=== PATIENT | female | born 1945 | race Caucasian/White ===

== ENCOUNTER 2016-07-29 11:52 | Observation (INO) | payer OTHER ==
[~2016-07-29] VITALS: Ht 170.2 cm; Wt 111.3 kg
[~2016-07-29 11:52] MED LIST: ADVAIR HFA120 INHALA IH; AFRIN MENTHOL S15 ML NS; ALLERGY RELIEF10 M5 PO; AMITRIPTYLINE H10 MG PO; ARMOUR THYROID15 MG PO; ARMOUR THYROID30 MG PO; ASPIRIN BUFFER325 MG PO; ASPIRIN325 MG PO; BALANCE B-1001 EAC1 PO; CALCARB 600 W-1 EACH PO; CALCIO DEL MAR500 MG PO; CELEBREX200 MG PO; CLINDAMYCIN HC300 MG PO; COENZYME Q1010 M1 PO; COQ-10100 MG PO; DELTASONE20 M1 PO; DHEA25 MG PO; DICYCLOMINE HCL20 MG PO; DULERA 100 MCG/13 GM IH; EQL GLUCOSAMIN PO; FIBER GUMMIES2.5 GM PO; FORADIL AEROLI12 MCG IH; GLUCOSAMINE &1 EACH PO; HYDROCODON-ACE1 EAC7 PO; KRILL OIL500 MG PO; LEVAQUIN500 MG PO; METOPROLOL TART50 MG PO; MULTIVITAMIN1 EAC1 PO; NEXIUM40 MG PO; NORCO 5/3251 TABLET PO; PRAVACHOL40 MG PO; PRAVASTATIN SOD40 MG PO; PREDNISONE50 MG PO; PREGNENOLONE; PREGNENOLONE1 GM MC; PROAIR HFA8.5 GM IH; PROBIOTIC1 EAC1 PO; PROGESTERONE100 MG PO; PROMETRIUM100 MG PO; PROMETRIUM200 M1 PO; PROVENTIL HFA6.7 GM IH; ROBITUSSIN AC,T10 ML PO; SYNOVACIN500 MG PO; TESSALON PERLE100 MG PO; VENTOLIN; VITAMIN D35000 UNI1 PO; VITAMIN D35000 UNIT PO; ZOFRAN4 MG PO; ZYRTEC10 M3 PO; [UNRECOGNIZED DRUG - OTHER] PO
[2016-07-29 14:04] LABS: EOSINOPHIL (%) 0.3 % (0-5); HEMATOCRIT 37.2 % (36.0-46.0); IMMATURE GRANULOCYTE (%) 0.2 % (0.0-0.7); IMMATURE GRANULOCYTE COUNT 0.2 K/uL; LYMPHOCYTE COUNT 1.3 K/uL (1.0-2.8); MCH 31.2 PG (29.0-34.0); MCHC 34.7 G/DL (30.0-36.0); MCV 89.9 FL (83-99); MEAN PLAT.VOLUME 11.2 uM^3 (9.5-12.4); MONOCYTE (%) 7.9 % (3-12); MONOCYTE COUNT 0.7 K/uL (0-0.8); NEUTROPHIL (%) 77.6 % (45-76); NEUTROPHIL COUNT 7.3 K/uL (1.8-6.4); PLATELET COUNT 200 K/uL (156-360); RBC DIS.WIDTH-CV 13.9 % (11.8-14.6); RBC DIS.WIDTH-SD 44.3 % (39-53); RED BLOOD COUNT 4.14 M/uL (3.80-5.20); WHITE BLOOD COUNT 9.4 K/uL (4.1-10.2)
[2016-07-29 15:00] LABS: CHLORIDE 107 mEq/L (99-109); POTASSIUM 3.9 mEq/L (3.7-5.4); SODIUM 138 mEq/L (136-147)
[2016-07-29 15:02] LABS: GLUCOSE 117 mg/dL (70-99)
[2016-07-29 15:04] LABS: ANION GAP 9 MEQ/L (2-14); TOTAL BILIRUBIN 0.6 mg/dL (0.0-1.0)
[2016-07-29 15:06] LABS: ALKALINE PHOSPHATASE 91 IU/L (3-129); GFR ESTIMATE (CALCULATED) > 59 mL/min/
[2016-07-29 15:07] LABS: UREA NITROGEN (BUN) 9 mg/dL (9-23)
[2016-07-29] MEDS ORDERED: ARMOUR THYROID30 MG PO (16:42)
[2016-07-29] MEDS ORDERED: BREO ELLIPTA I1 EACH IH (16:44)
[2016-07-29] MEDS ORDERED: VOLTAREN 1% GE100 GM TP (16:44)
[2016-07-29] MEDS ORDERED: BACTRIM,SEPT1 TABLET PO (16:44)
[2016-07-29] MEDS ORDERED: RANITIDINE HCL300 MG PO (16:45)
[2016-07-29] MEDS ORDERED: LYRICA25 MG PO (16:45)
[2016-07-29] MEDS ORDERED: COMPAZINE10 MG PO (16:46)
[2016-07-29] MEDS ORDERED: OXYCODONE-ACET1 EACH PO (16:46)
[2016-07-29 20:03] VITALS: BP 116/77
[2016-07-29 23:42] VITALS: BP 112/59
[2016-07-30 04:02] VITALS: BP 119/57
[2016-07-30 06:13] LABS: HEMATOCRIT 38.6 % (36.0-46.0); MCH 29.8 PG (29.0-34.0); MCHC 32.4 G/DL (30.0-36.0); MCV 92.1 FL (83-99); MEAN PLAT.VOLUME 10.7 uM^3 (9.5-12.4); PLATELET COUNT 219 K/uL (156-360); RBC DIS.WIDTH-CV 14.3 % (11.8-14.6); RBC DIS.WIDTH-SD 48.5 % (39-53); RED BLOOD COUNT 4.19 M/uL (3.80-5.20); WHITE BLOOD COUNT 7.3 K/uL (4.1-10.2)
[2016-07-30 06:39] LABS: ANION GAP 9 MEQ/L (2-14); CHLORIDE 107 MEQ/L (99-109); GFR ESTIMATE (CALCULATED) > 59 mL/min/; GLUCOSE 91 mg/dL (70-99); HDL CHOLESTEROL 44 MG/DL (Desirable>=50); LDL CHOLESTEROL 88 mg/dL (Desirable<100); NON-HDL CHOLESTEROL 111 mg/dL (Desirable<160); POTASSIUM 4.1 MEQ/L (3.7-5.4); SAMPLE HEMOLYSIS CHECK 0; SAMPLE ICTERIC CHECK 0; SAMPLE LIPEMIA CHECK 0; SODIUM 139 MEQ/L (136-147); TOTAL CHOLESTEROL 155 mg/dL (Desirable<200); TRIGLYCERIDES 113 MG/DL (Normal: <150); UREA NITROGEN (BUN) 9 mg/dL (9-23)
[2016-07-30 06:44] LABS: Estimated Average Glucose 126 mg/dL (70-123)
[2016-07-30 08:22] VITALS: BP 117/61
[2016-07-30 11:49] VITALS: BP 110/55
[2016-07-30] MEDS ORDERED: ELAVIL25 MG PO (13:07)
== END 2016-07-30 14:20 | disposition home or self-care (01) ==
LOC: EME 11:52 → EDOF 16:14 → 5WEST 19:37
PROVIDERS: Emergency Medicine; Internal Medicine
DX: R51 Headache (principal); R20.0 Anesthesia of skin; R11.2 Nausea with vomiting, unspecified; M54.2 Cervicalgia; M54.9 Dorsalgia, unspecified; G47.30 Sleep apnea, unspecified; M19.90 Unspecified osteoarthritis, unspecified site; E78.5 Hyperlipidemia, unspecified; E03.9 Hypothyroidism, unspecified; G43.909 Migraine, unspecified, not intractable, without status migrainosus; F34.1 Dysthymic disorder; J45.909 Unspecified asthma, uncomplicated; I73.9 Peripheral vascular disease, unspecified; K58.9 Irritable bowel syndrome, unspecified
CPT/HCPCS: 70450; 71020; 72040; 80048; 80053; 80061; 83036; 85025; 85027; 99281; 99285; G0378; J1170; J1200; J1650; J2405; J2550; J3030; J7040

== ENCOUNTER 2016-08-23 09:57 | Emergency (ER) | payer OTHER ==
[~2016-08-23] VITALS: Ht 171.4 cm; Wt 107.7 kg
[~2016-08-23 09:57] MED LIST changes: +BACTRIM,SEPT1 TABLET PO; +BREO ELLIPTA I1 EACH IH; +COMPAZINE10 MG PO; +ELAVIL25 MG PO; +LYRICA25 MG PO; +OXYCODONE-ACET1 EACH PO; +RANITIDINE HCL300 MG PO; +VOLTAREN 1% GE100 GM TP
[2016-08-23] MEDS ORDERED: MOTRIN800 MG PO (18:57)
[2016-08-23] MEDS ORDERED: FLEXERIL10 MG PO (18:57)
[2016-08-23 19:09] VITALS: BP 110/72
== END 2016-08-23 19:10 | disposition home or self-care (01) ==
LOC: EME 09:57
DX: R51 Headache (principal); E78.5 Hyperlipidemia, unspecified; Z88.0 Allergy status to penicillin; Z88.6 Allergy status to analgesic agent; Z91.041 Radiographic dye allergy status
CPT/HCPCS: 70450; 99281; 99284

== ENCOUNTER 2017-06-18 09:38 | Emergency (ER) | payer OTHER ==
[~2017-06-18] VITALS: Ht 170.2 cm; Wt 97.8 kg
[~2017-06-18 09:38] MED LIST changes: +FLEXERIL10 MG PO; +MOTRIN800 MG PO
[2017-06-18] MEDS ORDERED: FLEXERIL10 MG PO (12:31)
[2017-06-18 12:41] VITALS: BP 124/87
== END 2017-06-18 12:43 | disposition home or self-care (01) ==
LOC: EME 09:38
DX: M54.32 Sciatica, left side (principal); J45.909 Unspecified asthma, uncomplicated; E78.5 Hyperlipidemia, unspecified; K21.9 Gastro-esophageal reflux disease without esophagitis; M19.90 Unspecified osteoarthritis, unspecified site; Z88.0 Allergy status to penicillin; Z88.5 Allergy status to narcotic agent; Z91.041 Radiographic dye allergy status; Z88.1 Allergy status to other antibiotic agents; Z88.8 Allergy status to other drugs, medicaments and biological substances
CPT/HCPCS: 99281; 99284; J1100

== ENCOUNTER 2017-12-05 05:49 | Emergency (ER) | payer OTHER ==
[~2017-12-05] VITALS: Ht 172.7 cm; Wt 108.6 kg
[2017-12-05 07:09] LABS: TROP-I INTERPRETATION NEGATIVE; TROPONIN-I < 0.01 ng/mL (0.0-0.30)
[2017-12-05] MEDS ORDERED: PERCOCET 5/31 TABLET PO (07:17)
[2017-12-05] MEDS ORDERED: PREDNISONE50 MG PO (07:17)
[2017-12-05] MEDS ORDERED: LIDODERM 5% P1 PATCH TD (07:17)
[2017-12-05 07:24] VITALS: BP 105/71
== END 2017-12-05 07:28 | disposition home or self-care (01) ==
LOC: EME 05:49
PROVIDERS: Nurse Practitioner Family
DX: M65.812 Other synovitis and tenosynovitis, left shoulder (principal); M19.012 Primary osteoarthritis, left shoulder; K21.9 Gastro-esophageal reflux disease without esophagitis; J45.909 Unspecified asthma, uncomplicated; E78.5 Hyperlipidemia, unspecified; Z88.0 Allergy status to penicillin; Z88.1 Allergy status to other antibiotic agents; Z88.6 Allergy status to analgesic agent; Z88.5 Allergy status to narcotic agent; Z88.8 Allergy status to other drugs, medicaments and biological substances; Z91.041 Radiographic dye allergy status
CPT/HCPCS: 73030; 84484; 93005; 99281; 99284; J7512